=== PATIENT | female | born 1955 | race Two or more races ===

== ENCOUNTER 2024-04-22 08:00 | Outpatient (CLI) | payer OTHER ==
[~2024-04-22] VITALS: Ht 154.9 cm; Wt 54.4 kg
[2024-04-22] MEDS ORDERED: IRON236 MG (13:10)
[2024-04-22] MEDS ORDERED: GLUMETZA500 MG (13:10)
== END 2024-04-22 08:01 | disposition home or self-care (01) ==
LOC: EKG 08:00 → SURH 04-28 11:15 → EDSTATUS 04-28 11:15
PROVIDERS: ATTEND Colon & Rectal Surgery
DX: K63.5 Polyp of colon (principal); R59.0 Localized enlarged lymph nodes

== ENCOUNTER 2025-02-24 12:00 | Inpatient (IN) | payer OTHER ==
[~2025-02-24] VITALS: Ht 152.4 cm; Wt 49.9 kg
[~2025-02-24 12:00] MED LIST: GLUMETZA500 MG; IRON236 MG
[2025-02-24] MEDS ORDERED: TOPROL XL25 M1 PO (15:09)
[2025-02-24] MEDS ORDERED: FENOFIBRATE150 MG PO (15:10)
[2025-02-24] MEDS ORDERED: ZOCOR40 MG PO (15:10)
[2025-02-24] MEDS ORDERED: ZESTRIL20 MG PO (15:10)
[2025-02-24] MEDS ORDERED: ZETIA10 MG PO (15:10)
[2025-02-24 15:11] VITALS: BP 150/74
[2025-02-24 16:59] LABS: HEMATOCRIT 27.7 % (36.0-45.00); HEMOGLOBIN 9.2 g/dL (12.0-15.00); MEAN CELL VOLUME 98.3 fL (80.00-100.00); MEAN CORPUSCULAR HEMOGLOBIN 32.6 pg (27.00-32.0); MEAN CORPUSCULAR HGB CONC 33.2 g/dl (32.0-36.0); PLATELET COUNT 507 K/uL (150-450); RED BLOOD COUNT 2.82 M/uL (4.00-6.00); RED CELL DISTRIBUTION WIDTH 17.5 % (11.5-14.5)
[2025-02-24 18:46] LABS: RH POSITIVE
[2025-02-28 16:00] VITALS: BP 164/81; O2SAT 100
[2025-02-28] MEDS ORDERED: ENALAPRILAT DIHYDRATE 2.5 MG/2 ML VIAL IV PRN (22:45)
[2025-02-28] MEDS ORDERED: ACETAMINOPHEN 500 MG GEL..CAP PO PRN (23:00)
[2025-02-28] MEDS ORDERED: FUROsemide 20 MG/2 ML VIAL IV SCH (23:00)
[2025-03-01] MEDS ORDERED: LEVOTHYROXINE SODIUM 25 MCG TABLET PO SCH (06:00)
[2025-03-01 08:00] VITALS: BP 162/61; O2SAT 100
[2025-03-01] MEDS ORDERED: ENALAPRILAT DIHYDRATE 1.25 MG/ML VIAL IV PRN (08:45)
[2025-03-01] MEDS ORDERED: FAMOTIDINE/PF 20 MG in 0.9 % SODIUM CHLORIDE 8 ML IV PUSH SCH (09:00)
[2025-03-01] MEDS ORDERED: ENOXAPARIN SODIUM 40 MG/0.4 ML SYRINGE SUBCUTANEO SCH (09:00)
[2025-03-01] MEDS ORDERED: LISINOPRIL 20 MG TABLET PO SCH (09:00)
[2025-03-01 16:30] VITALS: BP 145/72; O2SAT 100
[2025-03-01 19:04] LABS: HEMATOCRIT 36.7 % (36.0-45.00); HEMOGLOBIN 12.5 g/dL (12.0-15.00); MEAN CELL VOLUME 90.3 fL (80.00-100.00); MEAN CORPUSCULAR HEMOGLOBIN 30.8 pg (27.00-32.0); MEAN CORPUSCULAR HGB CONC 34.1 g/dl (32.0-36.0); PLATELET COUNT 501 K/uL (150-450); RED BLOOD COUNT 4.06 M/uL (4.00-6.00); RED CELL DISTRIBUTION WIDTH 20.3 % (11.5-14.5)
[2025-03-01] MEDS ORDERED: GABAPENTIN 300 MG CAPSULE PO SCH (21:00)
[2025-03-01 23:38] VITALS: BP 157/95; O2SAT 100
[2025-03-02 09:03] VITALS: BP 123/66; O2SAT 99
[2025-03-02 09:07] LABS: INR 0.99; PROTHROMBIN TIME 10.8 SECONDS (9.0-11.5)
[2025-03-02 09:26] LABS: ALBUMIN 3.3 gm/dL (3.4-5.0); BILIRUBIN TOTAL 0.68 mg/dL (0.3-1.2); CALCIUM 9.4 mg/dL (8.5-10.1); CREATININE SERUM 1.87 mg/dL (0.55-1.02); GFR 26.7; POTASSIUM 4.52 mEq/L (3.5-5.1); TOTAL PROTEIN 7.3 gm/dL (6.4-8.2)
[2025-03-02 09:33] LABS: COVID-19 AG NEGATIVE (NEGATIVE)
[2025-03-02] MEDS ORDERED: CEFTRIAXONE SODIUM 2,000 MG VIAL ONE (09:37)
[2025-03-02] MEDS ORDERED: METRONIDAZOLE/SODIUM CHLORIDE 500 MG/100 ML PIGGYBACK IV ONE (09:37)
[2025-03-02] MEDS ORDERED: MORPHINE SULFATE 4 MG/ML CARTRIDGE IV PRN (13:45)
[2025-03-02] MEDS ORDERED: ONDANSETRON HCL 2 MG/ML VIAL IV PRN (13:45)
[2025-03-02] MEDS ORDERED: MORPHINE SULFATE 4 MG/ML VIAL IV ONE ×2 (14:15→14:45)
[2025-03-02 17:46] VITALS: BP 155/54; O2SAT 100
== END 2025-03-02 20:25 | disposition home or self-care (01) | DRG 357 ==
LOC: SURG 02-28 10:06 → SURH 03-02 12:00 → SURG 03-02 20:25
PROVIDERS: ADMIT Colon & Rectal Surgery; ATTEND Colon & Rectal Surgery
PROC: 30233N1 Transfusion of Nonautologous Red Blood Cells into Peripheral Vein, Percutaneous Approach (ICD-10-PCS; 2025-03-01)
PROC: 0DBW4ZX Excision of Peritoneum, Percutaneous Endoscopic Approach, Diagnostic (ICD-10-PCS; 2025-03-02)
PROC: 0DBU4ZZ Excision of Omentum, Percutaneous Endoscopic Approach (ICD-10-PCS; principal; 2025-03-02 12:15)
DX: C18.3 Malignant neoplasm of hepatic flexure (principal); C78.6 Secondary malignant neoplasm of retroperitoneum and peritoneum; R18.8 Other ascites; D64.9 Anemia, unspecified; K63.5 Polyp of colon; R59.0 Localized enlarged lymph nodes; I10 Essential (primary) hypertension; E11.9 Type 2 diabetes mellitus without complications